=== PATIENT | male | born 1975 | race Caucasian/White ===

== ENCOUNTER 2018-01-18 20:41 | Emergency (ER) | payer MEDICAID ==
[~2018-01-18] VITALS: Ht 170.2 cm; Wt 97.5 kg
[2018-01-18 20:44] VITALS: BP_SYST 141
[2018-01-18] MEDS ORDERED: ASPIRIN 325 MG TABLET PO ONE (20:45)
[2018-01-18] MEDS ORDERED: NITROGLYCERIN 0.4 MG TAB.SUBL SL ONE (21:00)
[2018-01-18 21:13] LABS: BASOPHILS % (AUTO) 0.6 % (0.0-2.0); EOSINOPHILS # (AUTO) 0.1 K/uL (0.0-0.4); EOSINOPHILS % (AUTO) 1.2 % (0.0-4.0); HEMATOCRIT 43.8 % (36-54); HEMOGLOBIN 14.6 g/dL (14.0-18.0); LYMPHOCYTES # (AUTO) 3.5 K/uL (1.0-5.5); LYMPHOCYTES % (AUTO) 48.6 % (20.5-51.5); MEAN CORPUSCULAR HEMOGLOBIN 32 pg (27-31); MEAN CORPUSCULAR HGB CONC 33 % (32-36); MEAN CORPUSCULAR VOLUME 96 fL (79.0-98.0); MONOCYTES # (AUTO) 0.6 K/uL (0.0-1.0); MONOCYTES % (AUTO) 8.1 % (1.7-9.3); NEUTROPHILS % (AUTO) 41.5 % (40.0-70.0); PLATELET COUNT (AUTO) 331 K/uL (130-430); RED BLOOD CELL COUNT(AUTO) 4.55 MIL/uL (4.2-6.2); RED CELL DISTRIBUTION WIDTH 13.4 % (9.0-15.0); WHITE BLOOD COUNT (AUTO) 7.2 K/uL (4.8-10.8)
[2018-01-18 21:19] LABS: PROTHROMBIN TIME 10.5 SECS (9.5-12.5)
[2018-01-18 21:22] LABS: ALBUMIN 3.6 g/dL (3.4-4.8); CALCIUM 9.2 mg/dL (8.4-11.0); CREATININE 0.92 mg/dL (0.55-1.30); POTASSIUM 3.6 mmol/L (3.5-5.1); TOTAL BILIRUBIN 0.4 mg/dL (0.0-1.0)
[2018-01-18] MEDS ORDERED: PREDNISONE 20 MG TABLET PO ONE (22:00)
[2018-01-18 22:09] VITALS: BP_SYST 137
== END 2018-01-18 22:09 | disposition home or self-care (01) ==
LOC: SED 20:41
DX: J20.9 Acute bronchitis, unspecified (principal); R74.0 Nonspecific elevation of levels of transaminase and lactic acid dehydrogenase [LDH]; F10.10 Alcohol abuse, uncomplicated; I10 Essential (primary) hypertension; Z87.891 Personal history of nicotine dependence; Z88.0 Allergy status to penicillin
CPT/HCPCS: 36415; 71045; 80053; 82550; 83880; 84484; 85025; 85379; 85610; 85730; 93005; 99285; J7512

== ENCOUNTER 2019-05-16 08:21 | Emergency (ER) | payer MEDICAID ==
[~2019-05-16] VITALS: Ht 170.2 cm; Wt 94.3 kg
[2019-05-16 08:26] VITALS: BP_SYST 136
--- NOTE | 2019-05-16 08:31 | NUR ---
Patient to ER bed 8 to gown for evaluation. Side rails up. Report given to Sharon MCCLELLAN.
--- NOTE | 2019-05-16 08:37 | NUR ---
Patient received w/ c/o a spider bite on the right buttocks region. Patient stated that he feels a burning sensation and pain level of 5/10. Bump is noted to be raised and has redness around. Patient in no signs of distress @ this time.
--- NOTE | 2019-05-16 08:50 | NUR ---
Dr. Anthony @ bedside for examination.
[2019-05-16 09:04] VITALS: BP_SYST 136
--- NOTE | 2019-05-16 09:04 | NUR ---
Patient given written and verbal discharge instructions and verbalizes understanding. ER MD discussed with patient the results and treatment provided. Patient in stable condition. ID arm band removed.Rx of atarax and prednisone given. Patient educated on pain management and to follow up with PMD. Pain Scale 5/10.Opportunity for questions provided and answered. Medication side effect fact sheet provided.
== END 2019-05-16 09:04 | disposition home or self-care (01) ==
LOC: SED 08:21
DX: S30.860A Insect bite (nonvenomous) of lower back and pelvis, initial encounter (principal); I10 Essential (primary) hypertension; Z88.0 Allergy status to penicillin; W57.XXXA Bitten or stung by nonvenomous insect and other nonvenomous arthropods, initial encounter; Y93.89 Activity, other specified; Y92.89 Other specified places as the place of occurrence of the external cause; Y99.8 Other external cause status
CPT/HCPCS: 99283

== ENCOUNTER 2019-05-24 02:36 | Emergency (ER) | payer MEDICAID ==
[~2019-05-24] VITALS: Ht 170.2 cm; Wt 94.3 kg
[2019-05-24 02:50] VITALS: BP_SYST 145
--- NOTE | 2019-05-24 02:51 | NUR ---
Patient to ER bed 8 to gown for evaluation. Side rails up.
--- NOTE | 2019-05-24 03:00 | NUR ---
Pt c/o small red bump to right buttocks since 05/16/19. Per pt, it's a "possible spider bite." Pt denies fever, N/V or diarrhea. No other injuries/complaints per patient or noted.
--- NOTE | 2019-05-24 03:05 | NUR ---
ER Dr. Roberts at bedside examining patient.
[2019-05-24] MEDS ORDERED: SULFAMETHOXAZOLE/TRIMETHOPR DS 1 TABLET PO ONE (03:15)
[2019-05-24] MEDS ORDERED: IBUPROFEN 800 MG TABLET PO ONE (03:15)
[2019-05-24 03:33] VITALS: BP_SYST 145
--- NOTE | 2019-05-24 03:33 | NUR ---
Patient given written and verbal discharge instructions and verbalizes understanding. ER MD discussed with patient the results and treatment provided. Patient in stable condition. ID arm band removed. Rx of Bactrim and Ibuprofen given. Patient educated on pain management and to follow up with PMD. Pain Scale 0. Opportunity for questions provided and answered. Medication side effect fact sheet provided.
== END 2019-05-24 03:33 | disposition home or self-care (01) ==
LOC: SED 02:36
DX: L03.317 Cellulitis of buttock (principal); L03.211 Cellulitis of face; I10 Essential (primary) hypertension; Z88.0 Allergy status to penicillin
CPT/HCPCS: 99283

== ENCOUNTER 2019-07-09 17:56 | Emergency (ER) | payer MEDICAID ==
[~2019-07-09] VITALS: Ht 170.2 cm; Wt 97.1 kg
[2019-07-09 18:10] VITALS: BP_SYST 133
--- NOTE | 2019-07-09 19:19 | NUR ---
Pt told admitting staff that he was leaving. Ambulatory with steady gait. LWBS at this time.
== END 2019-07-09 19:19 | disposition left against medical advice (07) ==
LOC: SED 17:56
DX: S61.219A Laceration without foreign body of unspecified finger without damage to nail, initial encounter (principal); Z53.21 Procedure and treatment not carried out due to patient leaving prior to being seen by health care provider; X58.XXXA Exposure to other specified factors, initial encounter; Y93.89 Activity, other specified; Y92.89 Other specified places as the place of occurrence of the external cause; Y99.8 Other external cause status

== ENCOUNTER 2020-02-18 11:46 | Emergency (ER) | payer MEDICAID ==
[~2020-02-18] VITALS: Ht 167.6 cm; Wt 94.3 kg
[2020-02-18 11:46] VITALS: BP_SYST 177
[2020-02-18] MEDS ORDERED: ENALAPRILAT DIHYDRATE 1.25 MG/ML VIAL IVP ONE ×2 (12:15→12:30)
[2020-02-18 12:39] LABS: CALCIUM 8.7 mg/dL (8.4-11.0); CREATININE 0.78 mg/dL (0.55-1.30); POTASSIUM 3.8 mmol/L (3.5-5.1)
[2020-02-18] MEDS ORDERED: ENALAPRILAT DIHYDRATE 1.25 MG/ML VIAL ONE (12:42)
[2020-02-18 12:43] LABS: BASOPHILS % (AUTO) 0.3 % (0.0-2.0); EOSINOPHILS # (AUTO) 0.1 K/uL (0.0-0.4); EOSINOPHILS % (AUTO) 1.9 % (0.0-4.0); HEMATOCRIT 41.2 % (36-54); HEMOGLOBIN 13.9 g/dL (14.0-18.0); LYMPHOCYTES % (AUTO) 32.9 % (20.5-51.5); MEAN CORPUSCULAR HEMOGLOBIN 33 pg (27-31); MEAN CORPUSCULAR HGB CONC 34 % (32-36); MEAN CORPUSCULAR VOLUME 97 fL (79.0-98.0); MONOCYTES # (AUTO) 0.5 K/uL (0.0-1.0); MONOCYTES % (AUTO) 9.1 % (1.7-9.3); NEUTROPHILS # (AUTO) 3.3 K/uL (1.8-7.7); NEUTROPHILS % (AUTO) 55.8 % (40.0-70.0); PLATELET COUNT (AUTO) 288 K/uL (130-430); RED BLOOD CELL COUNT(AUTO) 4.25 MIL/uL (4.2-6.2); RED CELL DISTRIBUTION WIDTH 15.7 % (9.0-15.0)
[2020-02-18 12:44] LABS: PROTHROMBIN TIME 10.5 SECS (9.5-12.5)
[2020-02-18 12:45] LABS: ALBUMIN 3.7 g/dL (3.4-4.8); TOTAL BILIRUBIN 0.5 mg/dL (0.0-1.0)
[2020-02-18] MEDS ORDERED: hydrALAZINE HCL 20 MG/ML VIAL IVP ONE ×2 (13:00→14:00)
[2020-02-18 15:00] VITALS: BP_SYST 138
[2020-02-18] MEDS ORDERED: ATEN-168 PO (18:39)
[2020-02-18] MEDS ORDERED: LISI40TA4 PO (18:39)
== END 2020-02-18 15:00 | disposition home or self-care (01) ==
LOC: SED 11:46
DX: I10 Essential (primary) hypertension (principal); I51.9 Heart disease, unspecified; E11.9 Type 2 diabetes mellitus without complications; E78.5 Hyperlipidemia, unspecified; Z88.0 Allergy status to penicillin
CPT/HCPCS: 36415; 71045; 80053; 83880; 84484; 85025; 85379; 85610; 85730; 96374; 96375; 99284; J0360

== ENCOUNTER 2020-02-18 18:22 | Emergency (ER) | payer MEDICAID ==
[~2020-02-18] VITALS: Ht 167.6 cm; Wt 94.3 kg
[2020-02-18 18:22] VITALS: BP_SYST 176
--- NOTE | 2020-02-18 18:22 | NUR ---
BROUGHT BACK TO BED #2 AND TRIAGED. REPORT GIVEN TO VJ
--- NOTE | 2020-02-18 18:29 | NUR ---
Placed in room 2. Placed on satellite project site monitor, blood pressure machine and pulse oximeter. To gown for exam. Side rails up.
--- NOTE | 2020-02-18 18:30 | NUR ---
Patient is awake, alert, and oriented x4. Patient returned after being discharged for hypertension not being resolved. No other complaints at this time.
[2020-02-18] MEDS ORDERED: ATEN-168 PO (18:39)
[2020-02-18] MEDS ORDERED: LISI40TA4 PO (18:39)
--- NOTE | 2020-02-18 19:17 | NUR ---
Report given to Gabriel for continuation of care.
[2020-02-18 19:35] VITALS: BP_SYST 155
--- NOTE | 2020-02-18 19:35 | NUR ---
Patient given written and verbal discharge instructions and verbalizes understanding by Dr. Alvarenga. ER MD discussed with patient the results and treatment provided. Patient in stable condition. ID arm band removed. NO Rx of given. Patient educated on pain management and to follow up with PMD. Pain Scale 1/10. Opportunity for questions provided and answered. Medication side effect fact sheet provided.
== END 2020-02-18 19:35 | disposition home or self-care (01) ==
LOC: SED 18:22
DX: I10 Essential (primary) hypertension (principal); Z88.0 Allergy status to penicillin
CPT/HCPCS: 99281